=== PATIENT | female | born 1975 | race Caucasian/White ===

== ENCOUNTER → 2016-07-05 | Outpatient (REF) | payer OTHER | LOC: M LAB REF 14:09 | PROVIDERS: ATTEND Physician Assistant Medical | DX: Z01.419 Encounter for gynecological examination (general) (routine) without abnormal findings (principal) ==

== ENCOUNTER → 2016-07-26 | Outpatient (REF) | payer OTHER ==
[2016-07-26 18:59] LABS: THYROID PEROXIDASE ANTIBODY < 28.0 U/ML (<60.0)
[2016-07-26 19:04] LABS: FREE T4 1.08 NG/DL (0.76-1.46); T UPTAKE 30 % (30-39); THYROXINE (T4) 9.9 UG/DL (4.5-12.0)
== END ==
LOC: M LAB REF 16:46
PROVIDERS: ATTEND Surgery
DX: F41.9 Anxiety disorder, unspecified (principal)

== ENCOUNTER → 2017-08-30 | Outpatient (REF) | payer OTHER ==
[2017-09-04 14:16] LABS: HPV HYBRID CAPTURE II Negative (Negative)
== END ==
LOC: M LAB REF 13:36
DX: Z01.419 Encounter for gynecological examination (general) (routine) without abnormal findings (principal); Z11.51 Encounter for screening for human papillomavirus (HPV)

== ENCOUNTER 2017-11-22 09:15 | Emergency (ER) | payer OTHER ==
[2017-11-22] MEDS: KETOROLAC TROMETHAMINE 10 MG TAB PO (09:46)
== END 2017-11-22 09:52 | disposition home or self-care (01) ==
LOC: M ED 09:15
DX: G89.29 Other chronic pain (principal); M54.5 Low back pain; I10 Essential (primary) hypertension; Z88.8 Allergy status to other drugs, medicaments and biological substances
CPT/HCPCS: 99282

== ENCOUNTER → 2018-05-04 | Outpatient (CLI) | payer OTHER ==
[~2018-05-04] MED LIST: BACL10TA2 PO; HYDR12.55
--- NOTE | 2018-05-09 13:04 | SLEEPCENT ---
DATE OF PROCEDURE: 05/04/2018 ORDERED BY: Molly Arvizu Nocturnal polysomnography was performed for the titration of pressure therapy in this patient with obstructive sleep apnea syndrome and apnea-hypopnea index of 9. For testing, a ResMed N20 nasal mask of medium size was used and 4 cm of water pressure were applied to the circuit and the lights were extinguished. 7 hours and 58 minutes data were reviewed. There were 373 minutes of sleep identified. Sleep latency was mildly prolonged at 28 minutes. Rapid eye movement (REM) latency was further prolonged at 239 minutes. Sleep architecture improved on optimal pressure therapy. Overall sleep efficiency was 79.1% and there were 2 REM cycles seen. The patient's electrocardiogram showed a sinus rhythm with an average heart rate of 65 beats per minute. Electroencephalogram (EEG) showed normal waveforms for awake and sleep. Respiratory events were best palliated with C-PAP at a pressure of +5. There was some minimal limb activity. Limb movement arousal index was only 5.5. IMPRESSION: Obstructive sleep apnea syndrome (G47.33). RECOMMENDATION: Nightly use of pressure therapy at 5 cm of water.
== END ==
LOC: M SLEEP 20:00
PROVIDERS: ATTEND Nurse Practitioner Family
DX: G47.33 Obstructive sleep apnea (adult) (pediatric) (principal)

== ENCOUNTER → 2020-09-05 | Outpatient (CLI) | payer OTHER ==
[~2020-09-05] MED LIST changes: +ELAG1CAP PO; +EQ A10TA2 PO; -HYDR12.55; +HYDR12.55 PO; +OMEP10CASR PO
== END ==
LOC: M LABSMTC 08:11
PROVIDERS: ATTEND Anesthesiology
DX: Z01.812 Encounter for preprocedural laboratory examination (principal); Z11.52 Encounter for screening for COVID-19

== ENCOUNTER 2020-09-10 06:09 | Day surgery (SDC) | payer OTHER ==
[~2020-09-10] VITALS: Ht 177.8 cm; Wt 115.1 kg
[2020-09-10] VITALS (8 sets, daily range): BP systolic 126–155; BP diastolic 63–80
[~2020-09-10 06:09] MED LIST changes: +LIDOCAINE 1% MDV 20ML VIAL SQ PRN; +LR 1,000 ML IV ONE; +UNRESOLVED CLARIFICATION ENTRY XX SCH; +ceFAZolin SOD 2 GM in IV 1 EA IV ONE
[2020-09-10 06:54] LABS: HEMOGLOBIN 13.2 g/dl (12.0-15.5); MEAN CORPUSCULAR HEMOGLOBIN 28.9 pg (27.0-33.0); MEAN CORPUSCULAR VOLUME 87.5 fl (80.0-96.0); PLATELET COUNT, AUTOMATED 277 10^3/uL (150-450); RED BLOOD COUNT 4.57 10^6/uL (4.00-5.40); WHITE BLOOD COUNT 5.9 10^3/uL (4.0-10.0)
[2020-09-10] MEDS ORDERED: MIDAZOLAM INJ 2MG/2ML VIAL (J2250 PER 1MG) As Ordered ONE (07:10)
[2020-09-10] MEDS ORDERED: ROCURONIUM BROMIDE 50 MG/5 ML VIAL As Ordered ONE ×2 (07:11→08:21)
[2020-09-10] MEDS ORDERED: fentaNYL 100 MCG/2 ML INJECTION (J3010) As Ordered ONE (07:11)
[2020-09-10] MEDS ORDERED: LIDOCAINE 2% 100MG/5ML SDV (FOR ANES.) As Ordered ONE (07:12)
[2020-09-10] MEDS ORDERED: METHYLENE BLUE 0.5% (5MG/ML) 10 ML AMP (PROVAYBLUE) As Ordered ONE (07:13)
[2020-09-10] MEDS ORDERED: SCOPOLAMINE 1MG TRANSDERMAL PATCH TOP ONE (07:35)
[2020-09-10] MEDS ORDERED: SCOPOLAMINE 1MG TRANSDERMAL PATCH As Ordered ONE (07:36)
[2020-09-10] MEDS ORDERED: propofoL 200 MG/20 ML VIAL As Ordered ONE ×2 (08:06→08:31)
[2020-09-10] MEDS ORDERED: METOCLOPRAMIDE INJ 10MG/2ML VIAL (J2765 PER 1) As Ordered ONE (08:07)
[2020-09-10] MEDS ORDERED: dexameTHASONE 4 MG/ML 1ML VIAL (J1100 PER 1MG) As Ordered ONE (08:07)
[2020-09-10] MEDS ORDERED: ONDANSETRON 4MG/2ML VIAL As Ordered ONE (08:07)
[2020-09-10] MEDS ORDERED: ACETAMINOPHEN 1000MG 100ML IV BTL (OFIRMEV) (J0131 PER 10MG) As Ordered ONE (08:08)
[2020-09-10] MEDS ORDERED: KETOROLAC 60MG 2ML VIAL As Ordered ONE (08:08)
[2020-09-10] MEDS ORDERED: SUGAMMADEX SODIUM 500 MG/5 ML VIAL (BRIDION) As Ordered ONE (08:08)
[2020-09-10] MEDS ORDERED: HYDROmorphone HCL 2 MG/ML 1ML VIAL (J1170) As Ordered ONE (08:28)
[2020-09-10] MEDS ORDERED: MORPHINE 1MG/ML IN 0.9% NACL 100ML IV BAG As Ordered ONE (10:09)
[2020-09-10] MEDS ORDERED: fentaNYL 100 MCG/2 ML INJECTION (J3010) IV PRN (10:15)
[2020-09-10] MEDS ORDERED: PERCOCET 5MG/325MG TAB PO PRN (10:15)
[2020-09-10] MEDS ORDERED: HYDROMORPHONE HCL 0.5 MG/ 0.5 ML SYRINGE (J1170 PER 1) IV PRN (10:15)
[2020-09-10] MEDS ORDERED: METOCLOPRAMIDE INJ 10MG/2ML VIAL (J2765 PER 1) IV PRN (10:15)
[2020-09-10] MEDS ORDERED: ONDANSETRON 4MG/2ML VIAL IV PRN (10:15)
[2020-09-10] MEDS ORDERED: LR 1,000 ML IV SCH (10:15)
[2020-09-10] MEDS ORDERED: MORPHINE 1MG/ML IN 0.9% NACL 100ML IV BAG IV PRN (10:20)
[2020-09-10] MEDS ORDERED: diphenhydrAMINE 50MG/ML VIAL (J1200) IV PRN (10:20)
[2020-09-10] MEDS ORDERED: NALBUPHINE HCL 10 MG/ML AMP (J2300) IV PRN (10:20)
[2020-09-10] MEDS ORDERED: IBUPROFEN 600MG TAB PO PRN (10:20)
[2020-09-10] MEDS ORDERED: EPIDURAL/PCA KEYS XX PRN (10:20)
[2020-09-10] MEDS ORDERED: NALOXONE INJ 0.4MG/1ML VIAL (J2310 PER 1MG) IV PRN (10:20)
[2020-09-10] MEDS ORDERED: NS 1,000 ML IV SCH (10:20)
[2020-09-10] MEDS: LR 1,000 ML IV SCH ×2 (10:20→18:29)
[2020-09-10] MEDS: hydroCHLOROthiazide 12.5 MG CAPSULE PO SCH (16:17)
[2020-09-10] MEDS: LORATADINE 10 MG TAB PO SCH (16:17)
[2020-09-10] MEDS: OMEPRAZOLE 20 MG CAP PO SCH (16:17)
--- NOTE | 2020-09-10 18:22 | RO ---
OPERATIVE NOTE DATE OF OPERATION: 09/10/2020 PREOPERATIVE DIAGNOSIS/INDICATION FOR SURGERY: Pain, bleeding and fibroids. POSTOPERATIVE DIAGNOSIS: Pain, bleeding and fibroids. PROCEDURE: Robotic-assisted hysterectomy with bilateral salpingo-oophorectomy. SURGEON: Araceli Baum MD INSURANCE SALES SUPERVISOR: None. ANESTHESIA: General endotracheal anesthesia. BRIEF DESCRIPTION OF PROCEDURE AND FINDINGS: Marianne was brought to the operating room where sufficient general endotracheal anesthesia was induced and she was prepped, draped and positioned in the usual sterile fashion with the uterine manipulator placed after the uterus had been sounded to 9 and was sutured in place for the robot hysterectomy and of course a Manzo with the ability to back fill was placed. We then turned our attention to the umbilical port. A transverse semilunar incision was made below the umbilicus. Sharp and blunt dissection were continued through the subcutaneous tissues to the level of the rectus fascia which was elevated with Maryam clamps, transversely incised, secured with 0 Vicryl retention and then the peritoneum entered under direct visualization in an open laparoscopic technique. The Shade cannula was then placed and CO2 insufflation then begun. After adequate CO2 insufflation, the peritoneal cavity was visualized. There were normal shiny peritoneal surfaces throughout. There was no excrescence, ascites nor exudate. There were some minor filmy adhesions of the intestine to the left pelvic sidewall and these were taken down with the robot later in the case but there were no other unusual findings. Two left-sided, one right-sided port were placed under direct visualization with no complication. The patient was placed in Trendelenburg and the robot was docked. Essentially the remainder of the procedure was done from the robotic console. Working from the console, I carefully brought down those minor adhesions to clear the infundibulopelvic ligament on the left side. With the uterus elevated using the uterine manipulator, the infundibulopelvic ligament was isolated, cauterized and transected using bipolar cautery through the robot. We then dissected through the mesentery of the tube and ovary through the superior aspect of the broad ligament toward the round ligament which was also cauterized and transected on the left side. A similar procedure was then carried out on the right side, taking care to avoid the ureters and bowel as is typical. Both were readily visualized in this patient. I then carefully brought down the bladder flap anteriorly. We were able to do this cold cutting of the tissues and we were able to back fill the bladder to readily identify and even though the patient had multiple fibroids which impacted visualization, we were able just manipulating the uterus in patients to get visualization. We then carefully cauterized the uterine vasculature. There were some accessory vessels not surprising in light of the leiomyomas but these too were cauterized. Then carefully I started the colpotomy posteriorly above the insertion of the uterosacrals and carefully transected and then worked our way towards where we had already cauterized the vessels and then worked forward where we had already brought the bladder flap down. After the colpotomy was complete, the uterus was delivered into the vagina. There was some pumping vasculature on the patient's left side. We were able to oversew that with a V-Loc suture and control. We paused and watched this for some time to make sure that we had good control and then continued the closure of the vaginal cuff. We had angle stitches, of course, with the V-Loc and then a running closure with good approximation and hemostasis achieved with care to take a full cm of the vaginal tissues. This fibroid uterus had avulsed them a little on the right side but we were able to bring them back up and resecure them well. We then irrigated and evaluated the pelvis again. There was no evidence of injury to bladder or ureters or bubble and we confirmed again that we had controlled that bleeding and the procedure was then ended with the CO2 allowed to escape the abdomen. The fascial wound at the umbilicus closed with 0 Vicryl retention sutures and then the skin at all four wounds closed with subcuticular stitch of 3-0 Vicryl for good approximation and hemostasis achieved. Dry sterile dressings were then applied. ESTIMATED BLOOD LOSS FOR THE PROCEDURE: About 100 mL. FLUID REPLACEMENT: Crystalloid. SPECIMENS: Uterus, ovaries and tubes of course with cervix attached. COMPLICATIONS: None. CONDITION AND DISPOSITION: Marianne tolerated the procedure well and was recovering in the recovery room in good condition.
[2020-09-10] MEDS ORDERED: SUMAtriptan SUCCINATE 25 MG TAB PO PRN (19:20)
[2020-09-11] VITALS: BP 138/77
[2020-09-11] MEDS: LR 1,000 ML IV SCH ×2 (01:46→10:20)
[2020-09-11 04:00] VITALS: BP 162/79
[2020-09-11] MEDS ORDERED: NORCO, ANEXSIA 5/325MG TABLET (HYDROcodone/ACETAMINOPHEN) PO PRN (06:00)
[2020-09-11 08:00] VITALS: BP 141/71
[2020-09-11 08:04] LABS: HEMATOCRIT 32.1 % (36.0-47.0); MEAN CORPUSCULAR HEMOGLOBIN 28.7 pg (27.0-33.0); MEAN CORPUSCULAR HGB CONC 32.4 g/dl (32.0-36.5); MEAN CORPUSCULAR VOLUME 88.7 fl (80.0-96.0); PLATELET COUNT, AUTOMATED 254 10^3/uL (150-450); RED BLOOD COUNT 3.62 10^6/uL (4.00-5.40); WHITE BLOOD COUNT 9.4 10^3/uL (4.0-10.0)
[2020-09-11 08:11] LABS: HEMOGLOBIN 10.4 g/dl (12.0-15.5)
[2020-09-11] MEDS: LORATADINE 10 MG TAB PO SCH (08:11)
[2020-09-11] MEDS: hydroCHLOROthiazide 12.5 MG CAPSULE PO SCH (08:11)
[2020-09-11] MEDS: OMEPRAZOLE 20 MG CAP PO SCH (08:11)
[2020-09-11] MEDS ORDERED: IBUP-1114 PO (10:46)
[2020-09-11] MEDS ORDERED: HYDR-3713 PO (10:46)
== END 2020-09-11 11:50 | disposition home or self-care (01) ==
LOC: M SDC 06:09 → M PED 11:01 → M SDC 09-11 11:50
PROVIDERS: ATTEND Obstetrics & Gynecology
DX: N93.9 Abnormal uterine and vaginal bleeding, unspecified (principal); R10.2 Pelvic and perineal pain; N80.0 Endometriosis of uterus; N72 Inflammatory disease of cervix uteri; D25.9 Leiomyoma of uterus, unspecified; G47.33 Obstructive sleep apnea (adult) (pediatric); I10 Essential (primary) hypertension; E78.5 Hyperlipidemia, unspecified; E66.9 Obesity, unspecified; G43.909 Migraine, unspecified, not intractable, without status migrainosus; F41.9 Anxiety disorder, unspecified; F32.9 Major depressive disorder, single episode, unspecified; Z79.899 Other long term (current) drug therapy
CPT/HCPCS: 36415; 58571; 84702; 85027; 86850; 86900; 86901; 87641; 88307; J0131; J0690; J1100; J1170; J1885; J2250; J2405; J2765; J3010; Q9968; S2900

== ENCOUNTER 2021-08-08 14:12 | Emergency (ER) | payer OTHER ==
[~2021-08-08] VITALS: Ht 180.3 cm; Wt 103.9 kg
[~2021-08-08 14:12] MED LIST changes: +HYDR-3713 PO; +IBUP-1114 PO; -LIDOCAINE 1% MDV 20ML VIAL SQ PRN; -LR 1,000 ML IV ONE; -UNRESOLVED CLARIFICATION ENTRY XX SCH; -ceFAZolin SOD 2 GM in IV 1 EA IV ONE
[2021-08-08 14:13] VITALS: BP 149/69
== END 2021-08-08 16:12 | disposition left against medical advice (07) ==
LOC: M ED 14:12
DX: Z53.21 Procedure and treatment not carried out due to patient leaving prior to being seen by health care provider (principal)

== ENCOUNTER → 2022-08-31 | Outpatient (CLI) | payer OTHER | LOC: M WHC 09:37 | PROVIDERS: ATTEND Registered Nurse | DX: Z12.31 Encounter for screening mammogram for malignant neoplasm of breast (principal) ==

== ENCOUNTER → 2023-05-23 | Outpatient (CLI) | payer OTHER | LOC: M SLEEP 20:00 | PROVIDERS: ATTEND Nurse Practitioner Family | DX: G47.33 Obstructive sleep apnea (adult) (pediatric) (principal) ==

== ENCOUNTER → 2023-11-01 | Outpatient (CLI) | payer OTHER | LOC: M RAD 08:17 | PROVIDERS: ATTEND Registered Nurse | DX: M25.552 Pain in left hip (principal) ==

== ENCOUNTER 2023-11-20 12:22 | Emergency (ER) | payer OTHER ==
[~2023-11-20] VITALS: Ht 180.3 cm; Wt 96.8 kg
[2023-11-20] MEDS ORDERED: SUMA50TA2 (12:57)
[2023-11-20 14:18] LABS: BASO % 0.6 % (0.0-1.0); EOS # 0.1 10^3/uL (0.0-0.5); EOS % 1.4 % (0.0-3.0); HEMATOCRIT 38.5 % (36.0-47.0); HEMOGLOBIN 12.8 g/dl (12.0-15.5); LYMPH # 1.5 10^3/uL (1.5-5.0); LYMPH % 22.8 % (24.0-44.0); MEAN CORPUSCULAR HEMOGLOBIN 30.3 pg (27.0-33.0); MEAN CORPUSCULAR HGB CONC 33.2 g/dl (32.0-36.5); MONO # 0.5 10^3/uL (0.0-0.8); MONO % 6.8 % (2.0-8.0); NEUTROPHILS # 4.5 10^3/uL (1.5-8.5); NEUTROPHILS % 68.1 % (36.0-66.0); PLATELET COUNT, AUTOMATED 236 10^3/uL (150-450); RED BLOOD COUNT 4.23 10^6/uL (4.00-5.40); WHITE BLOOD COUNT 6.6 10^3/uL (4.0-10.0)
[2023-11-20 14:48] LABS: ALKALINE PHOSPHATASE 66 U/L (46-116); ALT/SGPT 22 U/L (7.0-40); AST/SGOT 19 U/L (<34); BILIRUBIN,DIRECT < 0.1 MG/DL (<0.4); BILIRUBIN,TOTAL 0.3 MG/DL (0.3-1.2); BLOOD UREA NITROGEN 23 MG/DL (9-23); CALCIUM LEVEL 9.4 MG/DL (8.5-10.1); CARBON DIOXIDE LEVEL 30 MMOL/L (20-31); CHLORIDE LEVEL 107 MMOL/L (98-107); CREATININE FOR GFR 0.82 MG/DL (0.55-1.30); GLOMERULAR FILTRATION RATE > 60.0 (>58); GLUCOSE, FASTING 86 MG/DL (60-100); POTASSIUM SERUM 3.7 MMOL/L (3.5-5.1); SODIUM LEVEL 140 MMOL/L (136-145)
[2023-11-20 14:56] LABS: C REACTIVE PROTEIN QUANTITATIV < 0.40 MG/DL (<1.0)
[2023-11-20] MEDS ORDERED: OXYB-54 PO (18:15)
[2023-11-20 18:39] VITALS: BP 128/63; TEMP 98; O2SAT 99
== END 2023-11-20 18:46 | disposition home or self-care (01) ==
LOC: M ED 12:22
DX: M51.36 Other intervertebral disc degeneration, lumbar region (principal); N39.44 Nocturnal enuresis; K21.9 Gastro-esophageal reflux disease without esophagitis; G43.909 Migraine, unspecified, not intractable, without status migrainosus; F41.9 Anxiety disorder, unspecified; F32.A Depression, unspecified; I10 Essential (primary) hypertension; F10.10 Alcohol abuse, uncomplicated; Z87.891 Personal history of nicotine dependence; Z91.041 Radiographic dye allergy status; Z79.899 Other long term (current) drug therapy

== ENCOUNTER → 2024-01-03 | Outpatient (CLI) | payer OTHER ==
[~2024-01-03] MED LIST changes: +OXYB-54 PO; +PROHANCE 279.3MG/ML 15ML VIAL ONE; +PROHANCE 279.3MG/ML 5ML VIAL ONE; +SUMA50TA2
== END ==
LOC: M PLAIMG 12:14
PROVIDERS: ATTEND Physician Assistant
DX: M47.27 Other spondylosis with radiculopathy, lumbosacral region (principal); M51.17 Intervertebral disc disorders with radiculopathy, lumbosacral region; M48.061 Spinal stenosis, lumbar region without neurogenic claudication
CPT/HCPCS: 72158; 72197; A9576

== ENCOUNTER → 2024-04-11 | Outpatient (CLI) | payer OTHER ==
[~2024-04-11] MED LIST changes: -PROHANCE 279.3MG/ML 15ML VIAL ONE; -PROHANCE 279.3MG/ML 5ML VIAL ONE
== END ==
LOC: M RAD 15:05
PROVIDERS: ATTEND Registered Nurse
DX: R10.84 Generalized abdominal pain (principal); R11.2 Nausea with vomiting, unspecified